=== PATIENT | male | born 1935 | race African-American/Black ===

== ENCOUNTER 2019-11-18 06:23 | Inpatient (IN) ==
[2019-11-12 12:26] LABS: Basophils % 0.6 % (0.0-0.8); Eosinophils # 0.1 10*3/uL (0.0-0.87); Eosinophils % 1.5 % (0.00-10.9); Hematocrit 39.9 VOL% (42.0-52.0); Hemoglobin 13.5 GM/DL (14.0-18.0); Immature Granulocytes % 0.2 %; Immature Granulocytes Absolute 0.01 #; Lymphocytes # 2.4 10*3/uL (1.4-4.0); Lymphocytes % 51.2 % (21.2-54.2); Mean Corpuscular HGB Conc 33.8 GM/DL (32-36); Mean Corpuscular Volume 86.4 FL (87-102); Mean Platelet Volume 10.1 FL (9.6-12.0); Monocytes % 7.4 % (1.7-12.7); Neutrophils % 39.1 % (38.7-73.9); Platelet Count 187 T/CUMM (130-400); Red Blood Count 4.62 MC/CUMM (3.8-5.5); Red Cell Distribution Width 13.1 % (9.3-17.3); White Blood Count 4.7 T/CUMM (4-12)
[2019-11-12 12:34] LABS: INR 1.1; PT Patient Result 11.4 SECS (9.8-11.9)
[2019-11-12 12:54] LABS: Albumin 4.3 G/DL (3.4-5.0); Bilirubin,Total 1.1 MG/DL (0.2-1.0); Calcium 9.2 MG/DL (8.5-10.1); Osmolality,Calculated 268.1 MOS/KG (273-304); Total Protein 7.6 G/DL (6.4-8.3)
[~2019-11-18 06:23] MED LIST: LACTATED RINGERS 1,000 ML IV SCH; ceFAZolin 1,000 MG VIAL ONE; ceFAZolin 1,000 MG in SYRINGE 1 EACH IV ONE
[2019-11-18] MEDS ORDERED: HEPARIN 5,000 UNIT/1 ML VIAL ONE (07:31)
[2019-11-18] MEDS ORDERED: LIDOCAINE 1% 20 ML VIAL ONE (07:31)
[2019-11-18] MEDS ORDERED: ONDANSETRON 4 MG/2 ML VIAL IV PRN ×2 (10:12→10:39)
[2019-11-18] MEDS ORDERED: PROMETHAZINE 25 MG/1 ML VIAL IM PRN (10:12)
[2019-11-18] MEDS ORDERED: DEXTROSE 50% 25 GM/50 ML VIAL IV PRN (10:12)
[2019-11-18] MEDS ORDERED: oxyCODONE/ACETAMINOPHEN 5-325 MG TABLET PO PRN ×2 (10:12)
[2019-11-18] MEDS ORDERED: GLUCAGON 1 MG VIAL IM PRN (10:12)
[2019-11-18] MEDS ORDERED: NALOXONE 0.4 MG/ML VIAL IV PRN (10:12)
[2019-11-18] MEDS ORDERED: HYDROmorphone 2 MG/1 ML VIAL IV PRN ×3 (10:12→10:39)
[2019-11-18] MEDS ORDERED: NITROGLYCERIN SL 0.4 MG TABLET SL PRN (10:15)
[2019-11-18] MEDS ORDERED: ONDANSETRON 4 MG/2 ML VIAL ONE (10:40)
[2019-11-18] MEDS ORDERED: HYDROmorphone 2 MG/1 ML VIAL ONE (10:40)
[2019-11-18] MEDS ORDERED: PHENYLEPHRINE DRIP 20 MG/250 ML PREMIX IV ONE (11:18)
[2019-11-18] MEDS ORDERED: HEPARIN/NACL 0.9% 2 UNITS/ML 500 ML IV ONE (11:18)
[2019-11-18] MEDS ORDERED: LIDOCAINE 1% 5 ML VIAL ONE (11:18)
[2019-11-18] MEDS ORDERED: propofoL 200 MG/20 ML VIAL IV ONE (11:18)
[2019-11-18] MEDS ORDERED: DEXMEDETOMIDINE 200 MCG/2 ML VIAL ONE (11:19)
[2019-11-18] MEDS ORDERED: LABETALOL 100 MG/20 ML VIAL IV ONE (11:19)
[2019-11-18] MEDS ORDERED: HEPARIN 10,000 UNIT/10 ML VIAL ONE (11:19)
[2019-11-18] MEDS ORDERED: ETOMIDATE 40 MG/20 ML VIAL IV ONE (11:19)
[2019-11-18] MEDS ORDERED: GLYCOPYRROLATE 0.4 MG/2 ML VIAL ONE (11:19)
[2019-11-18] MEDS ORDERED: ePHEDrine 50 MG/ML VIAL ONE (11:19)
[2019-11-18] MEDS ORDERED: NEOSTIGMINE 10 MG/10 ML VIAL ONE (11:20)
[2019-11-18] MEDS ORDERED: PROTAMINE SULFATE 50 MG/5 ML VIAL IV ONE (11:20)
[2019-11-18] MEDS ORDERED: ROCURONIUM 100 MG/10 ML VIAL IV ONE (11:20)
[2019-11-18] MEDS ORDERED: SEVOFLURANE 1 UNIT/15 MINUTE INH ONE (11:20)
[2019-11-18] MEDS ORDERED: ROPIVACAINE 0.5% 30 ML VIAL ONE (11:20)
[2019-11-18] MEDS ORDERED: SODIUM CHLORIDE 0.9% 2,000 ML IV ONE (11:20)
[2019-11-18] MEDS ORDERED: PHENYLEPHRINE 1 MG/10 ML SYRINGE IV ONE (11:20)
[2019-11-18] MEDS: PHENYLEPHRINE DRIP 40 MG/250 ML PREMIX IV SCH (15:22)
[2019-11-18] MEDS: NITROPRUSSIDE 100 MG in DEXTROSE 5% 250 ML IV SCH (15:22)
[2019-11-18] MEDS: LACTATED RINGERS 1,000 ML IV SCH (15:22)
[2019-11-18] MEDS ORDERED: ATORVASTATIN 80 MG TABLET PO SCH (21:00)
[2019-11-18] MEDS ORDERED: lisinopriL 10 MG TABLET PO SCH (21:00)
[2019-11-18] MEDS ORDERED: CLOPIDOGREL 75 MG TABLET PO SCH (21:00)
[2019-11-18] MEDS: METOPROLOL TARTRATE 25 MG TABLET PO SCH (21:14)
[2019-11-19] MEDS: LACTATED RINGERS 1,000 ML IV SCH ×2 (04:57→11:17)
[2019-11-19] MEDS ORDERED: CLOPIDOGREL 75 MG TABLET PO SCH (09:00)
[2019-11-19] MEDS ORDERED: FUROSEMIDE 20 MG TABLET PO SCH (09:00)
[2019-11-19] MEDS ORDERED: ASPIRIN EC 81 MG TABLET PO SCH ×2 (09:00)
[2019-11-19] MEDS ORDERED: EZETIMIBE 10 MG TABLET PO SCH ×2 (09:00→21:00)
[2019-11-19] MEDS ORDERED: ISOSORBIDE MONONITRATE 30 MG TABLET PO SCH (09:00)
[2019-11-19] MEDS: NITROPRUSSIDE 100 MG in DEXTROSE 5% 250 ML IV SCH (11:16)
[2019-11-19] MEDS: METOPROLOL TARTRATE 25 MG TABLET PO SCH (11:16)
[2019-11-19] MEDS: PHENYLEPHRINE DRIP 40 MG/250 ML PREMIX IV SCH (11:16)
[2019-11-19 15:46] VITALS: BP 125/66
== END 2019-11-19 19:00 | disposition home or self-care (01) | DRG 38 ==
LOC: N.SDSINP 06:23 → N.ICU 14:36 → N.TELES 11-19 15:40
PROVIDERS: ADMIT Surgery; ATTEND Surgery